=== PATIENT | male | born 2000 | race Caucasian/White ===

== ENCOUNTER 2019-11-13 00:18 | Emergency (ER) | payer SELFPAY ==
[2019-11-13 00:33] VITALS: BP 151/79
[2019-11-13] MEDS ORDERED: ACETAMINOPHEN WITH CODEINE #3 TABLET PO ONE (01:22)
--- NOTE | 2019-11-13 01:28 | ER Document Report ---
ED General - General Chief Complaint: Toothache Stated Complaint: TOOTHACHE Time Seen by Provider: 11/13/19 00:52 - HPI Notes: 19-year-old male no significant medical history presents with approximately few weeks of severe lower wisdom tooth pain on the left. Says he has not been able to follow-up with dentist because he does not have insurance. Patient denies any fevers chills, inability to tolerate p.o., headache, neck pain, neck stiffness, immune compromise, prior antibiotics/treatment. - Related Data Allergies/Adverse Reactions: No Known Allergies Allergy (Unverified 11/13/19 00:34) Past Medical History - General Information source: Patient - Social History Smoking Status: Current Every Day Smoker Frequency of alcohol use: Social Family History: Reviewed & Not Pertinent Patient has suicidal ideation: No Patient has homicidal ideation: No Review of Systems - Review of Systems Notes: REVIEW OF SYSTEMS: CONSTITUTIONAL : Denies fever, chills, or sweats. EENT: Denies recent cold/sinus symptoms, denies throat pain CARDIOVASCULAR: Denies chest pain, SONIA RESPIRATORY: Denies cough, denies shortness of breath. GASTROINTESTINAL: Denies abdominal pain, nausea/vomiting. GENITOURINARY: Denies difficulty urinating, painful urination. MUSCULOSKELETAL: Denies neck pain, back pain. SKIN: Denies rash or skin lesions. HEMATOLOGIC : Denies easy bruising or bleeding. LYMPHATIC: Denies swollen, enlarged glands. NEUROLOGICAL: Denies headache, denies change in gait. PSYCHIATRIC: Denies anxiety or stress or depression. Physical Exam - Vital signs Vitals: Temp Pulse Resp BP Pulse Ox 98.9 F 79 16 151/79 H 99 11/13/19 00:31 11/13/19 00:31 11/13/19 00:31 11/13/19 00:31 11/13/19 00:31 - Notes Notes: PHYSICAL EXAMINATION: GENERAL: Well-appearing, well-nourished, uncomfortable appearing, in no acute distress. HEAD: Atraumatic, normocephalic. EYES: Pupils equal round and appropriate constriction, sclera anicteric, conjunctiva are normal. ENT: nares patent, moist mucous membranes. Visibly impacted mandibular wisdom teeth with advanced caries bilaterally with no signs of swelling no tenderness to touch, no gum edema, no cheek edema NECK: Normal range of motion, supple without lymphadenopathy LUNGS: Normal respiratory rate and effort, speaking in full sentences HEART: Regular rate, no JVD, no lower extremity edema ABDOMEN: Soft, nontender, no guarding, no masses, no CVAT EXTREMITIES: Normal range of motion, no pitting or edema. No cyanosis. NEUROLOGICAL: Awake, alert, conversing appropriately, moves all extremities spontaneously. PSYCH: Normal mood, normal affect. SKIN: Warm, Dry, normal turgor, no rashes or lesions noted. Course - Re-evaluation Re-evalutation: 11/13/19 01:26 Patient with severe dental pain from visibly impacted mandibular wisdom tooth, normal vitals otherwise well-appearing, no signs of abscess or spreading infection. No emergent need to consult [facility], patient can follow-up safely in dental clinic. We will give him information for dental clinic that serves patients without insurance and give few Tylenol 3 as patient has been taking adequate doses of ibuprofen without relief. Gave extensive return to ED precautions which patient demonstrated understanding of - Vital Signs Vital signs: Temp Pulse Resp BP Pulse Ox 98.9 F 79 16 151/79 H 99 11/13/19 00:31 11/13/19 00:31 11/13/19 00:31 11/13/19 00:31 11/13/19 00:31 Discharge - Discharge Clinical Impression: Pain in lower jaw Condition: Good Disposition: HOME, SELF-CARE Instructions: Toothache ([facility]) Additional Instructions: Call the below dental clinic tomorrow to make urgent appointment. Return to ED immediately if you have fever greater than 100.4, unable to keep down fluids by mouth, confusion, change in vision, weakness/numbness, or any other worsening or alarming symptoms. [facility] [address] [address] Prescriptions: Acetaminophen with Codeine [Tylenol #3 Tablet] 1 each PO Q6HP PRN #3 tablet PRN Reason:
== END 2019-11-13 01:49 | disposition home or self-care (01) ==
LOC: ER 00:18
DX: R68.84 Jaw pain (principal); K08.9 Disorder of teeth and supporting structures, unspecified; F17.200 Nicotine dependence, unspecified, uncomplicated
CPT/HCPCS: 99282

== ENCOUNTER 2019-11-15 06:13 | Emergency (ER) | payer SELFPAY ==
[2019-11-15] MEDS ORDERED: LIDOCAINE 1% INJ (10 MG/ML) 10 ML MDV INJ ONE (06:37)
[2019-11-15] MEDS ORDERED: LIDOCAINE 2% INJ-PF (20 MG/ML) 10 ML AMPUL ONE (06:38)
--- NOTE | 2019-11-15 06:43 | ER Document Report ---
ED General - General Chief Complaint: Toothache Stated Complaint: TOOTH PAIN Time Seen by Provider: 11/15/19 06:29 Primary Care Provider: [facility] [Provider Group] - Follow up as needed Mode of Arrival: Ambulatory Information source: Patient TRAVEL OUTSIDE OF THE [place] IN LAST 30 DAYS: No - HPI Onset: Other - over the last Onset/Duration: Gradual Quality of pain: Sharp Severity: Severe Pain Level: 5 Associated symptoms: None Exacerbated by: Food, Other - Drink Relieved by: Denies Similar symptoms previously: Yes Recently seen / treated by doctor: Yes - patient seen in this ER 2 days ago for the same Notes: 19 year old male with no significant PMH here for pain in his left lower impacted wisdom tooth. The patient has had pain off and on for 6 months but the pain has gotten much worse over the last several days. The patient was seen in this ER 2 days ago and prescribed 3 tablets of Tylenol #3. The patient says he used all the Tylenol #3 and he still has pain. The patient tells me he called a dental clinic and scheduled an appointment but it is not for 2 weeks. The patient denies fevers, chills, sweats, gum swelling, pus drainage. - Related Data Allergies/Adverse Reactions: No Known Allergies Allergy (Unverified 11/13/19 00:34) Past Medical History - General Information source: Patient - Social History Smoking Status: Current Every Day Smoker Chew tobacco use (# tins/day): No Frequency of alcohol use: Social Drug Abuse: None Family History: Reviewed & Not Pertinent Patient has suicidal ideation: No Patient has homicidal ideation: No Review of Systems - Review of Systems Constitutional: No symptoms reported EENT: Other - Dental pain (back left lower wisdom tooth) Cardiovascular: No symptoms reported Respiratory: No symptoms reported Gastrointestinal: No symptoms reported Genitourinary: No symptoms reported Male Genitourinary: No symptoms reported Musculoskeletal: No symptoms reported Skin: No symptoms reported Hematologic/Lymphatic: No symptoms reported Neurological/Psychological: No symptoms reported -: Yes All other systems reviewed and negative Physical Exam - Vital signs Vitals: Temp Pulse Resp BP Pulse Ox 97.8 F 86 16 151/81 H 98 11/15/19 06:16 11/15/19 06:16 11/15/19 06:16 11/15/19 06:16 11/15/19 06:16 - Notes Notes: GENERAL: Well-appearing, well-nourished and in no acute distress. HEAD: Atraumatic, normocephalic. EYES: Pupils equal round and reactive to light, extraocular movements intact, sclera anicteric, conjunctiva are normal. ENT: Impacted and decaying left posterior lower wisdom tooth which is tender to palpation but has no surrounding abscess. Normal external ears, nares patent, oropharynx clear without exudates. Moist mucous membranes. NECK: Normal range of motion, supple without lymphadenopathy or JVD. LUNGS: Breath sounds clear to auscultation bilaterally and equal. No wheezes rales or rhonchi. HEART: Regular rate and rhythm without murmurs, rubs or gallops. ABDOMEN: Soft, nontender, normoactive bowel sounds. No guarding, no rebound. No masses appreciated. EXTREMITIES: Normal range of motion, no pitting or edema. No clubbing or cyanosis. NEUROLOGICAL: Cranial nerves II through XII grossly intact. Normal speech, normal gait. PSYCH: Normal mood, normal affect. SKIN: Warm, Dry, normal turgor, no rashes or lesions noted. Course - Re-evaluation Re-evalutation: 11/15/19 06:58 The patient is here for dental pain (left lower impacted wisdom tooth which has decay). Patient had pain relief with a dental block. Patient DCed with scripts for Amoxicillin and Mobic and he was told to use Tylenol and Oragel. Patient told he needs to follow up with a Dental Clinic as soon as possible. - Vital Signs Vital signs: Temp Pulse Resp BP Pulse Ox 97.7 F 83 14 140/75 H 100 11/15/19 06:50 11/15/19 06:50 11/15/19 06:50 11/15/19 06:50 11/15/19 06:50 Procedures - Additional Procedures DENTAL BLOCK Notes: 11/15/19 06:56 Left posterior Inferior Alveolar Nerve block performed using 2cc of 1% lidocaine without complications. Patient had immediate relief of pain. Discharge - Discharge Clinical Impression: Pain, dental Condition: Stable Disposition: HOME, SELF-CARE Instructions: Toothache ([facility]) Additional Instructions: Take antibiotics (Amoxicillin) as prescribed. Use over the counter Tylenol and Oragel for pain along with the prescribed Mobic. Follow up with a Dentist as soon as possible. If you dont have a Dentist or need a referral, call the [facility]. Prescriptions: Amoxicillin 1 tab PO TID 7 Days #21 tab Meloxicam [Mobic 7.5 Mg Tablet] 7.5 mg PO BID #20 tablet Referrals: [facility] [Provider Group] - Follow up as needed
[2019-11-15 06:52] VITALS: BP 140/75
== END 2019-11-15 06:52 | disposition home or self-care (01) ==
LOC: ER 06:13
DX: K08.9 Disorder of teeth and supporting structures, unspecified (principal)
CPT/HCPCS: 99282

== ENCOUNTER 2020-03-02 14:01 | Emergency (ER) | payer SELFPAY ==
[2020-03-02 14:08] VITALS: BP 150/72
[2020-03-02] MEDS ORDERED: AMOXICILLIN TRIHYDRATE 500 MG CAPSULE PO ONE (15:40)
[2020-03-02] MEDS ORDERED: HYDROCODONE/ACETAMINOPHEN 5-325 MG TABLET PO ONE (15:40)
--- NOTE | 2020-03-02 15:45 | ER Document Report ---
HPI - HPI Time Seen by Provider: 03/02/20 15:37 Notes: CHIEF COMPLAINT: Continuing dental pain HPI: 20-year-old male who is been seen here multiple times previously for dental issues presenting again for dental pain left lower posterior molars. States pain became bad again today. History is obtained from both patient and the chart. No facial swelling no fever. ROS: See HPI - all other systems were reviewed and are otherwise negative Constitutional: no fever Eyes: no drainage, no blurred vision ENT: no runny nose, no sore throat, positive dental pain Integumentary: no rash Allergy: no hives MEDICATIONS: I agree with the patient medications as charted by the RN. ALLERGIES: I agree with the allergies as charted by the RN. PAST MEDICAL HISTORY/PAST SURGICAL HISTORY: Reviewed and agree as charted by RN. SOCIAL HISTORY: Reviewed and agree as charted by RN. FAMILY HISTORY: No significant familial comorbid conditions directly related to patient complaint EXAM: Reviewed vital signs as charted by RN. CONSTITUTIONAL: Alert and oriented and responds appropriately to questions. Well-appearing; well-nourished HEAD: Normocephalic; atraumatic EYES: PERRL; Conjunctivae clear, sclerae non-icteric ENT: normal nose; no rhinorrhea; moist mucous membranes; pharynx without lesions noted, no uvula edema or deviation, no tonsillar hypertrophy, phonation normal. No trismus. No sublingual swelling. There is significant dental caries left lower second molar with erythema without fluctuance adjacent to the tooth. No facial swelling NECK: Supple without meningismus; non-tender; no cervical lymphadenopathy, no masses CARD: symmetric distal pulses RESP: Normal chest excursion without splinting or tachypnea ABD/GI: non-distended BACK: The back appears normal EXT: Normal ROM in all joints; no cyanosis, no effusions, no edema SKIN: Normal color for age and race; warm; dry; good turgor; no acute lesions noted NEURO: Moves all extremities equally; Motor and sensory function intact PSYCH: The patient's mood and manner are appropriate. Grooming and personal hygiene are appropriate. MDM: 20-year-old male presenting again for dental pain. Appears to have infection adjacent to the left lower second molar. Patient was seen 4 months ago for same complaint and indicated at that time that he had already been having 6 months of pain. Patient needs to follow-up with a dentist will place him on an anti-inflammatory and an antibiotic Past Medical History - Social History Smoking Status: Unknown if Ever Smoked Family History: Reviewed & Not Pertinent Vertical Provider Document - INFECTION CONTROL TRAVEL OUTSIDE OF THE [place] IN LAST 30 DAYS: No Course - Vital Signs Vital signs: Temp Pulse Resp BP Pulse Ox 98.8 F 73 15 150/72 H 98 03/02/20 14:07 03/02/20 14:07 03/02/20 14:07 03/02/20 14:03/02/20 14:07 Discharge - Discharge Clinical Impression: Dental abscess Condition: Stable Disposition: HOME, SELF-CARE Additional Instructions: 1. Take the medications as prescribed, if you were written antibiotics make sure that you finish them. 2. You need to follow up with a dentist for definitive evaluation and care of your dental problems 3. return to the ED for any facial swelling, fever > 101, difficulty swallowing or opening the mouth. 4. You may attempt to follow up with the [facility] for further care as well as through the dental list provided. 5. you may want to consider a dental discount plan such as [email or web address] to help with costs of dental care as you do not have dental insurance Prescriptions: Amoxicillin 1 tab PO TID #30 tab Diclofenac Sodium [Voltaren 50 Mg Tablet.] 50 mg PO BID #20 tablet.
== END 2020-03-02 15:51 | disposition home or self-care (01) ==
LOC: ER 14:01
DX: K04.7 Periapical abscess without sinus (principal); K02.9 Dental caries, unspecified; K08.89 Other specified disorders of teeth and supporting structures
CPT/HCPCS: 99282